=== PATIENT | male | born 1955 | race Caucasian/White ===

== ENCOUNTER 2023-09-22 09:54 | Emergency (ER) | payer MEDICARE, BC ==
[~2023-09-22] VITALS: Ht 180.3 cm; Wt 104.6 kg
[2023-09-22] MEDS: ONDANSETRON ODT 4 MG TAB PO ONE (10:38)
[2023-09-22] MEDS: MEPERIDINE HCL (50 MG/ML) 1 ML VIAL IM ONE (10:38)
[2023-09-22 11:13] VITALS: TEMP 98.6; O2SAT 94
[2023-09-22 11:17] VITALS: BP 105/73; PULSE 116; RESP 16
[2023-09-22] MEDS ORDERED: TRAM-626 PO (12:57)
== END 2023-09-22 13:01 | disposition home or self-care (01) ==
LOC: ER 09:54
DX: S46.002A Unspecified injury of muscle(s) and tendon(s) of the rotator cuff of left shoulder, initial encounter (principal); S46.812A Strain of other muscles, fascia and tendons at shoulder and upper arm level, left arm, initial encounter; S46.012A Strain of muscle(s) and tendon(s) of the rotator cuff of left shoulder, initial encounter; K21.9 Gastro-esophageal reflux disease without esophagitis; E78.5 Hyperlipidemia, unspecified; X50.0XXA Overexertion from strenuous movement or load, initial encounter; Y93.89 Activity, other specified; Y92.89 Other specified places as the place of occurrence of the external cause; Y99.8 Other external cause status
CPT/HCPCS: 73221; 96372; 99285; J2175; Q0162

== ENCOUNTER 2023-10-11 06:20 | Inpatient (IN) | payer MEDICARE, BC ==
[2023-10-10 09:38] LABS: Urine Bacteria None Seen /hpf (None Seen)
[2023-10-10 09:47] LABS: Basophils # (auto) 0 10 ^3/uL (0-0.2); Eosinophils # (auto) 0 10 ^3/uL (0-0.8); Lymphocytes # (auto) 1.3 10 ^3/uL (0.4-5.4)
[2023-10-10 09:49] LABS: Basophils % (auto) 0.3 % (0.0-2.0); Eosinophils % (auto) 0.1 % (0.0-7.0); Hematocrit 37.4 % (41.0-53.0); Hemoglobin 12.5 g/dL (13.5-17.5); Lymphocytes % (auto) 8.1 % (10.0-50.0); Mean Corpuscular Hemoglobin 30.5 pg (28.0-32.0); Mean Corpuscular Hgb Conc. 33.5 g/dL (32.0-36.0); Mean Corpuscular Volume 91.2 fL (80.0-100.0); Monocytes # (auto) 1.7 10 ^3/uL (0-1.3); Monocytes % (auto) 10.8 % (0.0-12.0); Neutrophils # (auto) 12.9 10 ^3/uL (1.6-8.6); Neutrophils % (auto) 80.7 % (37.0-80.0); Red Cell Distribution Width 12.9 % (11.8-14.3)
[2023-10-10 10:18] LABS: INR 1.07 (0.9-1.15); Partial Thromboplastin Time 32.7 SEC (24.5-34.5); Prothrombin Time 11.3 sec (9.3-11.8)
[2023-10-10 10:32] LABS: Urine Blood Negative /uL (Negative); Urine Clarity Clear (Clear); Urine Color Yellow (Yellow); Urine Hyaline Cast FEW /lpf (0 - 2); Urine Protein, UAD TRACE (Negative); Urine Specific Gravity 1.009 (1.001-1.035); Urine Urobilinogen Normal (Negative); Urine WBC 1 /hpf (0 - 3)
[2023-10-10 10:45] LABS: Platelet Estimate Markedly Increased; RBC Morphology Normal
[2023-10-10 12:04] LABS: Alanine Aminotransferase 113 U/L (7-40); Albumin 4.1 g/dL (3.2-4.8); Alkaline Phosphatase 151 U/L (46-116); Anion Gap 7 (5-15); Aspartate Aminotransferase 97 U/L (13-40); BUN/Creatinine Ratio 8.7 (10.0-20.0); Bilirubin, Total 0.8 mg/dL (0.2-1.0); Blood Urea Nitrogen 9 mg/dL (9-23); Calcium 9.9 mg/dL (8.5-10.1); Carbon Dioxide 30 mmol/L (20-30); Chloride 93 mmol/L (98-107); Glucose 111 mg/dL (74-106); Potassium 5.3 mmol/L (3.5-5.1); Sodium 130 mmol/L (136-145); Total Protein 7.4 g/dL (5.7-8.2)
[~2023-10-11] VITALS: Ht 177.8 cm; Wt 96.6 kg
[~2023-10-11 06:20] MED LIST: ARMO1TAB2 PO; ATOR20TA PO; GABA-1250 PO; TRAM-626 PO
[2023-10-11] MEDS ORDERED: fentaNYL CITRATE 100 MCG/2 ML VL ONE (06:52)
[2023-10-11] MEDS: BUPIVACAINE 0.5% P/F INJ 10 ML VIAL ONE ×2 (06:57→16:31)
[2023-10-11] MEDS: EPINEPHrine HCL 1 MG/1 ML AMP ONE (06:58)
[2023-10-11] MEDS ORDERED: LIDOCAINE 1% INJ PF 5ML AMP ONE (07:12)
[2023-10-11] MEDS: TRANEXAMIC ACID 20 ML ONE (07:19)
[2023-10-11 07:57] LABS: Basophils # (auto) 0 10 ^3/uL (0-0.2); Eosinophils # (auto) 0.1 10 ^3/uL (0-0.8); Neutrophils # (auto) 9.2 10 ^3/uL (1.6-8.6); Neutrophils % (auto) 79.8 % (37.0-80.0); White Blood Cell 11.5 10^3/uL (4.4-10.8)
[2023-10-11 07:59] LABS: Basophils % (auto) 0.4 % (0.0-2.0); Eosinophils % (auto) 0.6 % (0.0-7.0); Hematocrit 28.4 % (41.0-53.0); Hemoglobin 9.2 g/dL (13.5-17.5); Lymphocytes % (auto) 8.5 % (10.0-50.0); Mean Corpuscular Hgb Conc. 32.4 g/dL (32.0-36.0); Mean Corpuscular Volume 92.8 fL (80.0-100.0); Monocytes # (auto) 1.2 10 ^3/uL (0-1.3); Monocytes % (auto) 10.7 % (0.0-12.0); Nucleated Red Blood Cells % 0.1 %; Red Blood Cells 3.06 10^6/uL (4.5-5.90); Red Cell Distribution Width 13.2 % (11.8-14.3)
[2023-10-11] MEDS ORDERED: NITROGLYCERIN 0.4 MG SL TAB SL PRN (08:45)
[2023-10-11 09:23] LABS: Alanine Aminotransferase 101 U/L (7-40); Albumin 3.2 g/dL (3.2-4.8); Alkaline Phosphatase 120 U/L (46-116); Amylase 36 U/L (30-118); Anion Gap 6 (5-15); Aspartate Aminotransferase 112 U/L (13-40); BUN/Creatinine Ratio 8.6 (10.0-20.0); Blood Urea Nitrogen 8 mg/dL (9-23); Calcium 9.2 mg/dL (8.5-10.1); Carbon Dioxide 27 mmol/L (20-30); Chloride 95 mmol/L (98-107); Glucose 98 mg/dL (74-106); Potassium 5.1 mmol/L (3.5-5.1); Sodium 128 mmol/L (136-145)
[2023-10-11 09:24] LABS: Bilirubin, Total 0.6 mg/dL (0.2-1.0)
[2023-10-11 09:25] LABS: Total Protein 5.9 g/dL (5.7-8.2)
[2023-10-11 09:26] LABS: Thyroid Stimulating Hormone 1.83 uIU/mL (0.55-4.78)
[2023-10-11 09:29] LABS: Wright Stain Ready for Review
[2023-10-11 09:39] LABS: LDL Cholesterol 47 mg/dL (< 100); Triglycerides 75 mg/dL (< 150)
[2023-10-11 09:41] LABS: Cholesterol 89 mg/dL (< 200); HDL Cholesterol 24 mg/dL (40-59)
[2023-10-11 09:50] LABS: Lipase 26 U/L (12-53)
[2023-10-11 11:07] LABS: Erythrocyte Sedimentation Rate 103 mm/hr (0-20)
[2023-10-11 12:02] LABS: % Iron Saturation 8.9 % (20-55)
[2023-10-11 12:11] LABS: Ferritin 272.5 ng/mL (22-322); Folate (Folic Acid) 19.64 ng/mL (>5.38)
[2023-10-11 16:30] VITALS: BP 107/70; PULSE 101; RESP 18; TEMP 98.4; O2SAT 98
[2023-10-11 16:31] VITALS: BP 107/70; PULSE 108; RESP 14; RESP 19; TEMP 98.3; O2SAT 96
[2023-10-11] MEDS: ceFAZolin 2 GM/D5W50ml 50 ML IV ONE (16:31)
[2023-10-11] MEDS: SUCCINYLCHOLINE CHLORIDE 20 MG/ML 10ML VIAL IV ONE (16:31)
[2023-10-11] MEDS: D5W/SOD CHLO 0.9% 1,000 ML IV SCH (17:08)
[2023-10-11] MEDS ORDERED: TRAZ-227 PO ×2 (17:43→21:51)
[2023-10-11] MEDS ORDERED: ATOR20TA50 PO (17:43)
[2023-10-11] MEDS ORDERED: ESOM40CA83 PO (17:43)
[2023-10-11] MEDS ORDERED: TRAM50TA2 PO (17:43)
[2023-10-11] MEDS ORDERED: CYAN250L PO (18:52)
[2023-10-11] MEDS ORDERED: ERGO500086 PO (18:52)
[2023-10-11] MEDS ORDERED: MAGN100C5 PO (18:52)
[2023-10-11] MEDS ORDERED: MULT1TAB82 PO (18:52)
[2023-10-11] MEDS ORDERED: B-COCAP36 PO (18:52)
[2023-10-11] MEDS ORDERED: CALC-518 PO (18:52)
[2023-10-11 20:00] VITALS: PULSE 87; RESP 17; O2SAT 97
[2023-10-11] MEDS: KETOROLAC TROMETH 30 MG/ML 1ML VIAL IV ONE (20:45)
[2023-10-11 21:00] VITALS: BP 95/60; PULSE 114; RESP 16; TEMP 98.8; O2SAT 91
[2023-10-11] MEDS ORDERED: ESOM40CA39 PO (21:51)
[2023-10-11] MEDS ORDERED: GABA-1250 PO (21:51)
[2023-10-11] MEDS ORDERED: MODA200T73 PO (21:51)
[2023-10-12] VITALS (7 sets, daily range): BP systolic 100–125; BP diastolic 60–75; PULSE 85–110; RESP 16–17; TEMP 97.8–98.7; O2SAT 93–98
[2023-10-12] MEDS: KETOROLAC TROMETH 30 MG/ML 1ML VIAL IV ONE (02:30)
[2023-10-12] MEDS: cefTRIAXone 1GM/50ML D5W 50 ML IV SCH (09:17)
[2023-10-12] MEDS: PANTOPRAZOLE 40 MG/10 ML VIAL INJ IV SCH (09:17)
[2023-10-12] MEDS ORDERED: ACETAMINOPHEN 500 MG TAB PO PRN (10:45)
[2023-10-12] MEDS ORDERED: ONDANSETRON HCL 4 MG/2 ML VIAL IV PRN (10:45)
[2023-10-12] MEDS: MORPHINE SULFATE INJ 2 MG/ml SYRG IV PRN (11:20)
[2023-10-12] MEDS: SODIUM FERR GLUC 62.5MG/5ML 110 ML IV SCH (13:43)
[2023-10-12] MEDS: GABAPENTIN 300 MG CAP PO SCH (13:44)
[2023-10-12] MEDS: HYDROcodone-ACET 5/325MG TAB PO PRN (13:49)
[2023-10-12] MEDS: ATORVASTATIN 20 MG TAB PO SCH (21:17)
[2023-10-12] MEDS: traZODone HCL 50 MG TAB PO SCH (21:18)
[2023-10-13] VITALS (7 sets, daily range): BP systolic 98–125; BP diastolic 62–81; PULSE 63–99; RESP 16–19; TEMP 97.9–98.9; O2SAT 93–97
[2023-10-13] MEDS: MORPHINE SULFATE INJ 2 MG/ml SYRG IV PRN (04:25)
[2023-10-13 07:22] LABS: Alanine Aminotransferase 146 U/L (7-40); Albumin 3.2 g/dL (3.2-4.8); Alkaline Phosphatase 138 U/L (46-116); Aspartate Aminotransferase 137 U/L (13-40); Bilirubin, Total 0.4 mg/dL (0.2-1.0); Carbon Dioxide 28 mmol/L (20-30); Glucose 122 mg/dL (74-106); Total Protein 5.8 g/dL (5.7-8.2)
[2023-10-13 07:26] LABS: BUN/Creatinine Ratio 7.5 (10.0-20.0); Blood Urea Nitrogen < 5 mg/dL (9-23); Chloride 101 mmol/L (98-107); Potassium 3.9 mmol/L (3.5-5.1); Sodium 132 mmol/L (136-145)
[2023-10-13 07:27] LABS: Anion Gap 3 (5-15); Basophils # (auto) 0.1 10 ^3/uL (0-0.2); Basophils % (auto) 0.6 % (0.0-2.0); Eosinophils # (auto) 0.1 10 ^3/uL (0-0.8); Eosinophils % (auto) 0.8 % (0.0-7.0); Hematocrit 31.1 % (41.0-53.0); Hemoglobin 10.3 g/dL (13.5-17.5); Lymphocytes # (auto) 1.1 10 ^3/uL (0.4-5.4); Lymphocytes % (auto) 12.1 % (10.0-50.0); Mean Corpuscular Hemoglobin 30.3 pg (28.0-32.0); Monocytes # (auto) 1.1 10 ^3/uL (0-1.3); Monocytes % (auto) 12.4 % (0.0-12.0); Neutrophils # (auto) 6.5 10 ^3/uL (1.6-8.6); Neutrophils % (auto) 74.1 % (37.0-80.0); Nucleated Red Blood Cells % 0.1 %; Red Blood Cells 3.38 10^6/uL (4.5-5.90); Red Cell Distribution Width 12.9 % (11.8-14.3); White Blood Cell 8.8 10^3/uL (4.4-10.8)
[2023-10-13 08:56] LABS: Hepatitis B Core Total AB Negative (Negative)
[2023-10-13 09:29] LABS: Hepatitis B Core Total AB Negative (Negative)
[2023-10-13 09:49] LABS: Hepatitis A Total Antibody Positive (Negative); Hepatitis B Surface Antibody Negative (Negative); Hepatitis B Surface Antigen Negative (Negative); Hepatitis C Antibody Negative (Negative)
[2023-10-13 09:50] LABS: Hepatitis A Total Antibody Negative (Negative)
[2023-10-13 09:51] LABS: Hepatitis B Surface Antibody Negative (Negative); Hepatitis B Surface Antigen Negative (Negative); Hepatitis C Antibody Negative (Negative)
[2023-10-13] MEDS: LIDOCAINE 5% TOPICAL PATCH TOP SCH (17:34)
[2023-10-13] MEDS: OXYCODONE W/ ACETAMINOPHEN 5/325MG TABLET PO PRN (17:35)
[2023-10-14] VITALS (9 sets, daily range): BP systolic 103–119; BP diastolic 66–78; PULSE 84–99; RESP 16–19; TEMP 97.4–99.2; O2SAT 91–99
[2023-10-14 05:13] LABS: Alanine Aminotransferase 130 U/L (7-40); Albumin 3.4 g/dL (3.2-4.8); Alkaline Phosphatase 146 U/L (46-116); Anion Gap 3 (5-15); Aspartate Aminotransferase 98 U/L (13-40); BUN/Creatinine Ratio 7.1 (10.0-20.0); Blood Urea Nitrogen 5 mg/dL (9-23); Carbon Dioxide 30 mmol/L (20-30); Chloride 99 mmol/L (98-107); Glucose 118 mg/dL (74-106); Potassium 4.2 mmol/L (3.5-5.1); Sodium 132 mmol/L (136-145)
[2023-10-14 05:14] LABS: Basophils # (auto) 0 10 ^3/uL (0-0.2); Bilirubin, Total 0.4 mg/dL (0.2-1.0); Eosinophils # (auto) 0.1 10 ^3/uL (0-0.8); Hemoglobin 10.9 g/dL (13.5-17.5); Neutrophils % (auto) 74.2 % (37.0-80.0); Total Protein 6.1 g/dL (5.7-8.2)
[2023-10-14 05:16] LABS: Basophils % (auto) 0.5 % (0.0-2.0); Eosinophils % (auto) 1.3 % (0.0-7.0); Hematocrit 32.7 % (41.0-53.0); Lymphocytes % (auto) 11.3 % (10.0-50.0); Mean Corpuscular Hemoglobin 30.6 pg (28.0-32.0); Mean Corpuscular Hgb Conc. 33.2 g/dL (32.0-36.0); Monocytes # (auto) 1.1 10 ^3/uL (0-1.3); Monocytes % (auto) 12.7 % (0.0-12.0); Neutrophils # (auto) 6.3 10 ^3/uL (1.6-8.6); Red Blood Cells 3.55 10^6/uL (4.5-5.90); White Blood Cell 8.4 10^3/uL (4.4-10.8)
[2023-10-14] MEDS ORDERED: PROPOFOL 10 MG/ML 20 ML IV ONE ×2 (08:41→08:47)
[2023-10-14] MEDS ORDERED: MIDAZOLAM HCL 2MG/2ML 2ml VIAL (1mg/ml) ONE (08:45)
[2023-10-14] MEDS ORDERED: fentaNYL CITRATE 100 MCG/2 ML VL ONE (08:45)
[2023-10-14] MEDS ORDERED: MEPERIDINE HCL (25 MG/ML) 1ML VIAL ONE (08:46)
[2023-10-14] MEDS ORDERED: DexAMETHasone SOD PHOS 10MG/1ML VIAL INJ ONE (08:47)
[2023-10-14] MEDS ORDERED: HYDROmorphone HCL 2 MG/ML VL/or syr IV PRN (09:00)
[2023-10-14] MEDS ORDERED: LIDOCAINE VISCOUS 2% 15ML UD ONE (09:26)
[2023-10-14] MEDS: METOCLOPRAMIDE HCL 5MG/ml INJ 2ml VIAL IV SCH (14:38)
[2023-10-14] MEDS: CLINDAMYCIN 300MG IV 50 ML IV SCH (14:38)
[2023-10-15] VITALS (8 sets, daily range): BP systolic 98–133; BP diastolic 57–73; PULSE 97–112; RESP 12–20; TEMP 97.5–101.1; O2SAT 92–98
[2023-10-15 07:21] LABS: Anion Gap 4 (5-15); Carbon Dioxide 31 mmol/L (20-30); Chloride 97 mmol/L (98-107); Potassium 4.4 mmol/L (3.5-5.1); Sodium 132 mmol/L (136-145)
[2023-10-15 07:23] LABS: Calcium 9.4 mg/dL (8.5-10.1)
[2023-10-15 07:27] LABS: BUN/Creatinine Ratio 7.9 (10.0-20.0); Blood Urea Nitrogen 6 mg/dL (9-23); Glucose 97 mg/dL (74-106)
[2023-10-15 07:48] LABS: INR 1.13 (0.9-1.15); Prothrombin Time 11.9 sec (9.3-11.8)
[2023-10-15 07:54] LABS: Basophils # (auto) 0 10 ^3/uL (0-0.2); Basophils % (auto) 0.4 % (0.0-2.0); Eosinophils # (auto) 0.1 10 ^3/uL (0-0.8); Eosinophils % (auto) 1.2 % (0.0-7.0); Hematocrit 33.4 % (41.0-53.0); Hemoglobin 11.6 g/dL (13.5-17.5); Lymphocytes # (auto) 1.3 10 ^3/uL (0.4-5.4); Lymphocytes % (auto) 12.6 % (10.0-50.0); Mean Corpuscular Hemoglobin 31.6 pg (28.0-32.0); Mean Corpuscular Hgb Conc. 34.8 g/dL (32.0-36.0); Mean Corpuscular Volume 90.8 fL (80.0-100.0); Monocytes # (auto) 1.3 10 ^3/uL (0-1.3); Monocytes % (auto) 12.9 % (0.0-12.0); Neutrophils # (auto) 7.5 10 ^3/uL (1.6-8.6); Neutrophils % (auto) 72.9 % (37.0-80.0); Red Blood Cells 3.68 10^6/uL (4.5-5.90); Red Cell Distribution Width 12.9 % (11.8-14.3); White Blood Cell 10.3 10^3/uL (4.4-10.8)
[2023-10-15] MEDS ORDERED: PROPOFOL 10 MG/ML 20 ML IV ONE (12:14)
[2023-10-15] MEDS ORDERED: fentaNYL CITRATE 100 MCG/2 ML VL ONE (12:14)
[2023-10-15] MEDS ORDERED: ePHEDrine SULFATE 50 MG/ML AMP ONE (12:55)
[2023-10-15] MEDS: LIDOCAINE W/ EPINEPHRINE 1% 20ML VIAL ONE (12:57)
[2023-10-15] MEDS: ONDANSETRON HCL 4 MG/2 ML VIAL IV ONE (13:15)
[2023-10-15] MEDS ORDERED: MEPERIDINE HCL (25 MG/ML) 1ML VIAL IV PRN (13:15)
[2023-10-15] MEDS ORDERED: HYDROmorphone HCL 2 MG/ML VL/or syr IV PRN (13:15)
[2023-10-15] MEDS: levoFLOXacin 500MG 100 ML IV ONE (17:46)
[2023-10-15] MEDS: LINEZOLID 600MG/300ML 300 ML IV SCH (23:09)
[2023-10-16] VITALS (8 sets, daily range): BP systolic 91–114; BP diastolic 56–77; PULSE 73–109; RESP 17–20; TEMP 98–98.8; O2SAT 91–95
[2023-10-16 07:06] LABS: Hematocrit 31.6 % (41.0-53.0); Hemoglobin 10.8 g/dL (13.5-17.5); Mean Corpuscular Hemoglobin 30.9 pg (28.0-32.0); Mean Corpuscular Hgb Conc. 34.1 g/dL (32.0-36.0); Mean Corpuscular Volume 90.8 fL (80.0-100.0); Red Blood Cells 3.48 10^6/uL (4.5-5.90); White Blood Cell 10.8 10^3/uL (4.4-10.8)
[2023-10-16 07:21] LABS: Basophils % (manual) 0 (0.0-2.0); Blast Cells 0; Metamyelocytes % 0; Myelocytes % 0; Promyelocytes % 0; Reactive Lymphocytes 0
[2023-10-16 07:28] LABS: Alanine Aminotransferase 72 U/L (7-40); Albumin 3.4 g/dL (3.2-4.8); Alkaline Phosphatase 145 U/L (46-116); Anion Gap 4 (5-15); Aspartate Aminotransferase 45 U/L (13-40); BUN/Creatinine Ratio 8.6 (10.0-20.0); Blood Urea Nitrogen 7 mg/dL (9-23); Calcium 9.2 mg/dL (8.5-10.1); Carbon Dioxide 29 mmol/L (20-30); Chloride 95 mmol/L (98-107); Glucose 100 mg/dL (74-106); Potassium 4.1 mmol/L (3.5-5.1); Sodium 128 mmol/L (136-145)
[2023-10-16 07:29] LABS: Bilirubin, Total 0.6 mg/dL (0.2-1.0); Total Protein 6.3 g/dL (5.7-8.2)
[2023-10-16 07:37] LABS: CRP High Sensitivity 16.85 mg/dL (<1.0)
[2023-10-16 08:33] LABS: Band Neutrophils % (manual) 1; Eosinophils % (manual) 1 (0-7); Lymphocytes % (manual) 17 (10.0-50.0); Monocytes % (manual) 10 (0-12); Platelet Estimate Increased
[2023-10-16 08:43] LABS: Erythrocyte Sedimentation Rate 106 mm/hr (0-20)
[2023-10-16] MEDS: levoFLOXacin 500MG 100 ML IV SCH (09:23)
[2023-10-17] VITALS (8 sets, daily range): BP systolic 104–109; BP diastolic 55–69; PULSE 87–101; RESP 17–18; TEMP 97.4–98.1; O2SAT 92–96
[2023-10-17 06:33] LABS: Basophils # (auto) 0 10 ^3/uL (0-0.2); Eosinophils # (auto) 0.2 10 ^3/uL (0-0.8); Hemoglobin 10.4 g/dL (13.5-17.5); Lymphocytes # (auto) 1.2 10 ^3/uL (0.4-5.4); Mean Corpuscular Hemoglobin 30.5 pg (28.0-32.0); Mean Corpuscular Hgb Conc. 33.8 g/dL (32.0-36.0); Monocytes # (auto) 1.3 10 ^3/uL (0-1.3); Neutrophils # (auto) 5.9 10 ^3/uL (1.6-8.6); White Blood Cell 8.6 10^3/uL (4.4-10.8)
[2023-10-17 06:35] LABS: Basophils % (auto) 0.3 % (0.0-2.0); Eosinophils % (auto) 2.8 % (0.0-7.0); Hematocrit 30.6 % (41.0-53.0); Lymphocytes % (auto) 13.4 % (10.0-50.0); Mean Corpuscular Volume 90.1 fL (80.0-100.0); Monocytes % (auto) 15.4 % (0.0-12.0); Neutrophils % (auto) 68.1 % (37.0-80.0); Red Cell Distribution Width 12.9 % (11.8-14.3)
[2023-10-17 07:46] LABS: Erythrocyte Sedimentation Rate 108 mm/hr (0-20)
[2023-10-17] MEDS: METOCLOPRAMIDE HCL 5MG/ml INJ 2ml VIAL IV SCH (14:00)
[2023-10-17] MEDS: LACTULOSE 20Gm/30ML SOLN PO SCH (14:00)
[2023-10-18] VITALS (7 sets, daily range): BP systolic 94–102; BP diastolic 53–68; PULSE 65–103; RESP 16–20; TEMP 97.5–98.7; O2SAT 89–96
[2023-10-18] MEDS: MORPHINE SULFATE INJ 2 MG/ml SYRG IV PRN (03:01)
[2023-10-18] MEDS: ACETAMINOPHEN/CODEINE#3 (300/30mg) TAB PO PRN (14:08)
[2023-10-18] MEDS: KETOROLAC TROMETH 30 MG/ML 1ML VIAL IV ONE (15:41)
[2023-10-18] MEDS: methylPREDNISolone SOD SUCC 125 MG/2 ML VL IV ONE (15:43)
[2023-10-19 00:54] VITALS: BP 97/63; PULSE 71; RESP 16; TEMP 97.8; O2SAT 95
[2023-10-19 05:00] VITALS: BP 101/67; PULSE 79; RESP 14; TEMP 97.9; O2SAT 92
[2023-10-19 07:30] VITALS: PULSE 79; O2SAT 93
[2023-10-19 09:09] VITALS: BP 106/66; PULSE 73; RESP 18; TEMP 97.8; O2SAT 93
[2023-10-19] MEDS ORDERED: LEVO500T91 PO (11:49)
[2023-10-19] MEDS ORDERED: CEL100T PO (11:49)
[2023-10-19] MEDS: LINEZOLID 600MG/300ML 300 ML IV SCH (12:15)
[2023-10-19 13:03] VITALS: BP 102/69; PULSE 88; RESP 20; TEMP 97.5; O2SAT 96
[2023-10-19 13:37] VITALS: BP 101/67; PULSE 79; RESP 18; TEMP 36.4; O2SAT 93
== END 2023-10-19 15:25 | disposition home health service (06) | DRG 872 ==
LOC: SUR 06:20 → OVERFLOW 08:46 → WEST WING 16:19
PROVIDERS: ADMIT Internal Medicine; ATTEND Nurse Practitioner Acute Care
PROC: 0DB68ZX Excision of Stomach, Via Natural or Artificial Opening Endoscopic, Diagnostic (ICD-10-PCS; 2023-10-14)
PROC: 0DB98ZX Excision of Duodenum, Via Natural or Artificial Opening Endoscopic, Diagnostic (ICD-10-PCS; principal; 2023-10-14 09:29)
PROC: 0X990ZZ Drainage of Left Upper Arm, Open Approach (ICD-10-PCS; 2023-10-15)
DX: A41.9 Sepsis, unspecified organism (principal); L02.414 Cutaneous abscess of left upper limb; N13.6 Pyonephrosis; D75.839 Thrombocytosis, unspecified; K21.9 Gastro-esophageal reflux disease without esophagitis; K59.00 Constipation, unspecified; N26.1 Atrophy of kidney (terminal); R74.01 Elevation of levels of liver transaminase levels; E66.9 Obesity, unspecified; N18.31 Chronic kidney disease, stage 3a; K22.70 Barrett's esophagus without dysplasia; K44.9 Diaphragmatic hernia without obstruction or gangrene; K76.0 Fatty (change of) liver, not elsewhere classified; M06.9 Rheumatoid arthritis, unspecified; K22.89 Other specified disease of esophagus; K29.70 Gastritis, unspecified, without bleeding; K57.30 Diverticulosis of large intestine without perforation or abscess without bleeding; M19.071 Primary osteoarthritis, right ankle and foot; T14.8XXA Other injury of unspecified body region, initial encounter; Z80.8 Family history of malignant neoplasm of other organs or systems; Z98.84 Bariatric surgery status; Z79.899 Other long term (current) drug therapy; Z68.30 Body mass index [BMI] 30.0-30.9, adult; Z90.49 Acquired absence of other specified parts of digestive tract; Z96.612 Presence of left artificial shoulder joint; X58.XXXA Exposure to other specified factors, initial encounter; Y93.89 Activity, other specified; Y92.89 Other specified places as the place of occurrence of the external cause; Y99.8 Other external cause status
CPT/HCPCS: 36415; 71045; 71260; 73630; 74177; 76705; 80048; 80053; 80061; 81001; 82150; 82607; 82728; 82746; 83036; 83540; 83550; 83605; 83615; 83690; 83880; 84443; 84550; 85007; 85025; 85027; 85045; 85610; 85652; 85730; 86038; 86141; 86431; 86704; 86706; 86708; 86803; 86850; 86900; 86901; 87040; 87070; 87075; 87086; 87088; 87186; 87205; 87340; 93971; 97110; 97116; 97163; C9113; G0378; J0171; J0330; J1100; J1885; J1956; J2250; J2704; J3490; J7042